=== PATIENT | female | born 1990 | race Caucasian/White ===

== ENCOUNTER 2017-02-04 17:07 | Emergency (ER) | payer SELFPAY ==
[~2017-02-04] VITALS: Ht 160 cm; Wt 68.2 kg
[2017-02-04 17:10] VITALS: BP 124/80; TEMP 98.3
[2017-02-04 18:35] VITALS: PULSE 90
== END 2017-02-04 18:37 | disposition home or self-care (01) ==
LOC: COL.ER 17:07
DX: R11.0 Nausea (principal)

== ENCOUNTER 2018-01-28 10:52 | Emergency (ER) | payer SELFPAY ==
[~2018-01-28] VITALS: Ht 160 cm; Wt 72.7 kg
[2018-01-28 10:57] VITALS: BP 131/79; PULSE 108; TEMP 99.3
[2018-01-28] MEDS ORDERED: AMOXICILLIN875 MG PO (11:37)
== END 2018-01-28 12:31 | disposition home or self-care (01) ==
LOC: COL.ER 10:52
DX: J03.90 Acute tonsillitis, unspecified (principal)